=== PATIENT | male | born 1970 | race Caucasian/White ===

== ENCOUNTER 2020-11-27 21:10 | Emergency (ER) | payer MEDICAID ==
[~2020-11-27] VITALS: Ht 165.1 cm; Wt 68.0 kg
[2020-11-27] MEDS ORDERED: ACETAMINOPHEN 325MG TABLET PO ONE (23:30)
[2020-11-28 06:16] VITALS: BP 97/67
== END 2020-11-28 06:18 | disposition hospice, inpatient (51) ==
LOC: ER 21:10
DX: S50.311A Abrasion of right elbow, initial encounter (principal); W17.89XA Other fall from one level to another, initial encounter; Y93.89 Activity, other specified; Y92.122 Bedroom in nursing home as the place of occurrence of the external cause; K70.30 Alcoholic cirrhosis of liver without ascites
CPT/HCPCS: 73080; 93005; 99285